=== PATIENT | male | born 1940 | race Hispanic/Latino ===

== ENCOUNTER 2021-05-20 15:54 | Inpatient (IN) | payer OTHER ==
[~2021-05-20] VITALS: Ht 182.9 cm; Wt 81.7 kg
[2021-05-20 16:16] LABS: BASOPHILS % (AUTO) 0.6 % (0.0-5.0); EOSINOPHILS % (AUTO) 1.3 % (0.0-8.0); HEMATOCRIT 39.5 % (42-54); MEAN CORPUSCULAR HEMOGLOBIN 30.7 pg (27.0-33.0); MEAN CORPUSCULAR HGB CONC 33.9 g/dL (32.0-36.0); MEAN CORPUSCULAR VOLUME 90.4 fL (79-99); MONOCYTES % (AUTO) 5.6 % (3.0-13.0); NEUTROPHILS % (AUTO) 73.7 % (40.0-77.0); PLATELET COUNT (AUTO) 267 K/uL (130-400); RED BLOOD CELL COUNT(AUTO) 4.37 MIL/uL (4.50-6.20); WHITE BLOOD COUNT (AUTO) 10.5 K/uL (4.8-10.8)
[2021-05-20] MEDS ORDERED: 0.9%NACL 1000ML 1,000 ML IV ONE (16:30)
[2021-05-20 16:33] LABS: CREATININE 2.4 mg/dL (0.5-1.5); POTASSIUM 4.2 mmol/L (3.5-5.1)
[2021-05-20 16:43] LABS: ALBUMIN 3.2 g/dL (3.5-5.0); BILIRUBIN,TOTAL 1.1 mg/dL (0.2-1.0); TOTAL PROTEIN, SERUM 7.7 g/dL (6.0-8.3)
[2021-05-20 16:54] LABS: B-TYPE NATRIURETIC PEPTIDE 71 pg/mL (0-100)
[2021-05-20 17:06] LABS: INR 1.11 (0.85-1.15)
[2021-05-20 17:07] LABS: PARTIAL THROMBOPLASTIN TIME 32.1 SEC (26.3-35.5)
[2021-05-20] MEDS ORDERED: DUTA0.5C37 PO (18:30)
[2021-05-20] MEDS ORDERED: SOLI10TA7 PO (18:30)
[2021-05-20] MEDS ORDERED: MEMA10TA55 PO (18:30)
[2021-05-20] MEDS ORDERED: OLAN1CAP PO (18:30)
[2021-05-20] MEDS ORDERED: NITR100C PO (18:30)
[2021-05-20] MEDS ORDERED: ATEN1TAB4 PO ×2 (18:30→18:36)
[2021-05-20 19:02] LABS: APPEARANCE,URINE Cloudy (CLEAR); BILIRUBIN,URINE Negative (NEGATIVE); COLOR,URINE Yellow (YELLOW); GLUCOSE, URINE (UA) Negative (NEGATIVE); KETONES,URINE Negative (NEGATIVE); LEUKOCYTE ESTERASE ,URINE Large (NEGATIVE); NITRATE,URINE Positive (NEGATIVE); OCCULT BLOOD,URINE Small (NEGATIVE); PROTEIN,URINE Negative (NEGATIVE)
[2021-05-20 19:11] LABS: BACTERIA,URINE Few /HPF (None Seen); WBC,URINE 26-50 /HPF (0-1)
[2021-05-20 19:12] LABS: HYALINE CASTS, URINE 0-1 /LPF (0-1 /LPF); MUCUS,URINE Rare LPF (None Seen); SQUAMOUS EPITHELIAL CELL,UR Rare /HPF (0-2)
[2021-05-20] MEDS: LACTATED RINGERS 1000ML 1,000 ML IV SCH (20:30)
[2021-05-20] MEDS ORDERED: ASPIRIN 81MG CHEW TAB PO ONE (20:30)
[2021-05-20] MEDS ORDERED: ACETAMINOPHEN 325 MG TAB PO PRN (20:30)
[2021-05-20] MEDS ORDERED: 0.9% NACL 500ML IV.SOLN 500 ML IV SCH (20:30)
[2021-05-20] MEDS ORDERED: ASPIRIN 81MG CHEW TAB ONE (22:55)
[2021-05-20] MEDS: CEFTRIAXONE 1G VIAL IV SCH (22:55)
[2021-05-20] MEDS: HEPARIN 5,000 UNIT VIAL SQ SCH (22:55)
[2021-05-20] MEDS: NITROGLYCERIN 1GM OINT 1 INCH/1GM TD SCH (22:55)
[2021-05-21] MEDS: NITROGLYCERIN 1GM OINT 1 INCH/1GM TD SCH (04:30)
[2021-05-21] MEDS: LACTATED RINGERS 1000ML 1,000 ML IV SCH (06:35)
[2021-05-21 06:42] LABS: BASOPHILS % (AUTO) 0.5 % (0.0-5.0); EOSINOPHILS % (AUTO) 1.4 % (0.0-8.0); HEMATOCRIT 37.9 % (42-54); LYMPHOCYTES % (AUTO) 15.4 % (21.0-51.0); MEAN CORPUSCULAR HEMOGLOBIN 30.5 pg (27.0-33.0); MEAN CORPUSCULAR VOLUME 89.6 fL (79-99); MONOCYTES % (AUTO) 5.5 % (3.0-13.0); NEUTROPHILS % (AUTO) 75.5 % (40.0-77.0); PLATELET COUNT (AUTO) 271 K/uL (130-400); RED BLOOD CELL COUNT(AUTO) 4.23 MIL/uL (4.50-6.20); WHITE BLOOD COUNT (AUTO) 9.5 K/uL (4.8-10.8)
[2021-05-21 06:56] LABS: CREATININE 2.2 mg/dL (0.5-1.5); MAGNESIUM 2.3 mg/dL (1.80-2.40); PHOSPHORUS 5.3 mg/dL (2.5-4.9)
[2021-05-21] MEDS ORDERED: PHARMACY COMMUNICATION MISC SCH (08:30)
[2021-05-21] MEDS ORDERED: NON-FORMULARY MEDICATION 1 EACH (Dutasteride 0.5 MG) PO SCH (09:00)
[2021-05-21] MEDS: FAMOTIDINE 20MG VIAL IV SCH (09:51)
[2021-05-21] MEDS: ASPIRIN 81 MG EC TAB PO SCH (09:52)
[2021-05-21] MEDS: TAMSULOSIN HCL 0.4 MG CAP.ER.24H PO SCH (09:52)
[2021-05-21] MEDS: MEMANTINE HCL 5 MG TABLET PO SCH (09:52)
[2021-05-21] MEDS: HEPARIN 5,000 UNIT VIAL SQ SCH ×3 (09:52→20:46)
[2021-05-21] MEDS ORDERED: OSELTAMIVIR PHOSPHATE 75 MG CAP PO SCH (10:00)
[2021-05-21] MEDS ORDERED: COMPOUND PO MISCELLANEOUS 1 EACH MISC MISC PRN (10:00)
[2021-05-21] MEDS: SOLIFENACIN SUCCINATE 10 MG PO SCH (10:14)
[2021-05-21] MEDS: OSELTAMIVIR PHOSPHATE 300 MG, WATER FOR INJECTION,STERILE 10 ML, COMPOUNDING VEHICLE SF... PO SCH ×6 (10:31→20:46)
[2021-05-21] MEDS: CEFTRIAXONE 1G VIAL IV SCH (20:46)
[2021-05-21] MEDS: FINASTERIDE 5 MG TABLET PO SCH (20:46)
[2021-05-22 03:30] VITALS: BP 114/60
[2021-05-22 05:30] LABS: CREATININE 2.2 mg/dL (0.5-1.5); POTASSIUM 4.1 mmol/L (3.5-5.1)
[2021-05-22 07:00] VITALS: BP 102/45
[2021-05-22 08:19] LABS: HEMATOCRIT 36.9 % (42-54); MEAN CORPUSCULAR HEMOGLOBIN 31.1 pg (27.0-33.0); MEAN CORPUSCULAR HGB CONC 33.6 g/dL (32.0-36.0); MEAN CORPUSCULAR VOLUME 92.5 fL (79-99); RED BLOOD CELL COUNT(AUTO) 3.99 MIL/uL (4.50-6.20); RED CELL DISTRIBUTION WIDTH 12.2 % (11.0-15.5); WHITE BLOOD COUNT (AUTO) 8.8 K/uL (4.8-10.8)
[2021-05-22] MEDS: SOLIFENACIN SUCCINATE 10 MG PO SCH (09:00)
[2021-05-22] MEDS: OSELTAMIVIR PHOSPHATE 300 MG, WATER FOR INJECTION,STERILE 10 ML, COMPOUNDING VEHICLE SF... PO SCH ×6 (09:00→20:30)
[2021-05-22] MEDS: TAMSULOSIN HCL 0.4 MG CAP.ER.24H PO SCH (09:35)
[2021-05-22] MEDS: MEMANTINE HCL 5 MG TABLET PO SCH (09:35)
[2021-05-22] MEDS: FAMOTIDINE 20MG VIAL IV SCH (09:35)
[2021-05-22] MEDS: ASPIRIN 81 MG EC TAB PO SCH (09:35)
[2021-05-22] MEDS: HEPARIN 5,000 UNIT VIAL SQ SCH ×2 (09:39→20:30)
[2021-05-22 11:00] VITALS: BP 127/77
[2021-05-22 15:00] VITALS: BP 113/59
[2021-05-22 20:00] VITALS: BP 133/60
[2021-05-22] MEDS: CEFTRIAXONE 1G VIAL IV SCH (20:29)
[2021-05-22] MEDS: FINASTERIDE 5 MG TABLET PO SCH (20:29)
[2021-05-23] VITALS: BP 104/57
[2021-05-23 04:00] VITALS: BP 123/64
[2021-05-23 04:31] LABS: CREATININE 2.1 mg/dL (0.5-1.5)
[2021-05-23 08:00] VITALS: BP 122/52
[2021-05-23] MEDS: SOLIFENACIN SUCCINATE 10 MG PO SCH (09:00)
[2021-05-23] MEDS: TAMSULOSIN HCL 0.4 MG CAP.ER.24H PO SCH (09:45)
[2021-05-23] MEDS: FAMOTIDINE 20MG VIAL IV SCH (09:46)
[2021-05-23] MEDS: MEMANTINE HCL 5 MG TABLET PO SCH (09:46)
[2021-05-23] MEDS: ASPIRIN 81 MG EC TAB PO SCH (09:46)
[2021-05-23] MEDS: OSELTAMIVIR PHOSPHATE 300 MG, WATER FOR INJECTION,STERILE 10 ML, COMPOUNDING VEHICLE SF... PO SCH ×6 (09:47→20:22)
[2021-05-23] MEDS: HEPARIN 5,000 UNIT VIAL SQ SCH ×3 (10:01→20:16)
[2021-05-23 12:00] VITALS: BP 119/69
[2021-05-23 16:00] VITALS: BP 94/51
[2021-05-23] MEDS: CEFTRIAXONE 1G VIAL IV SCH (20:16)
[2021-05-23] MEDS: FINASTERIDE 5 MG TABLET PO SCH (20:16)
[2021-05-23 20:20] VITALS: BP 109/59
[2021-05-24 00:20] VITALS: BP 115/69
[2021-05-24 04:20] VITALS: BP 124/66
[2021-05-24 08:00] VITALS: BP 107/70
[2021-05-24] MEDS: ASPIRIN 81 MG EC TAB PO SCH (08:41)
[2021-05-24] MEDS: MEMANTINE HCL 5 MG TABLET PO SCH (08:42)
[2021-05-24] MEDS: TAMSULOSIN HCL 0.4 MG CAP.ER.24H PO SCH (08:42)
[2021-05-24] MEDS: FAMOTIDINE 20MG VIAL IV SCH (08:42)
[2021-05-24] MEDS: HEPARIN 5,000 UNIT VIAL SQ SCH ×3 (08:44→21:36)
[2021-05-24 12:00] VITALS: BP_SYST 117; BP_SYST 131; BP_DIAS 66; BP_DIAS 71
[2021-05-24] MEDS: OSELTAMIVIR PHOSPHATE 300 MG, WATER FOR INJECTION,STERILE 10 ML, COMPOUNDING VEHICLE SF... PO SCH ×6 (13:00→21:37)
[2021-05-24 16:00] VITALS: BP 123/76
[2021-05-24 20:12] VITALS: BP 111/62
[2021-05-24] MEDS: FINASTERIDE 5 MG TABLET PO SCH (21:32)
[2021-05-24] MEDS: CEFTRIAXONE 1G VIAL IV SCH (21:32)
[2021-05-24] MEDS: LACTULOSE 20 GM/30 ML UDCUP PO SCH (21:32)
[2021-05-25] VITALS: BP 119/67
[2021-05-25 04:00] VITALS: BP 128/72
[2021-05-25 08:00] VITALS: BP 136/59
[2021-05-25] MEDS: TAMSULOSIN HCL 0.4 MG CAP.ER.24H PO SCH ×2 (09:00→09:31)
[2021-05-25] MEDS: OSELTAMIVIR PHOSPHATE 300 MG, WATER FOR INJECTION,STERILE 10 ML, COMPOUNDING VEHICLE SF... PO SCH ×3 (09:00)
[2021-05-25] MEDS: LACTULOSE 20 GM/30 ML UDCUP PO SCH ×2 (09:00→09:30)
[2021-05-25] MEDS: ASPIRIN 81 MG EC TAB PO SCH ×2 (09:00→09:30)
[2021-05-25] MEDS: FAMOTIDINE 20MG VIAL IV SCH ×2 (09:00→09:30)
[2021-05-25] MEDS: MEMANTINE HCL 5 MG TABLET PO SCH (09:31)
[2021-05-25] MEDS: HEPARIN 5,000 UNIT VIAL SQ SCH (09:33)
[2021-05-25 11:35] VITALS: BP 140/73
[2021-05-25] MEDS ORDERED: AEC81 PO (15:06)
[2021-05-25] MEDS ORDERED: TAMS-1 PO (15:06)
[2021-05-25] MEDS ORDERED: CEFD300C3 PO (15:06)
[2021-05-25] MEDS ORDERED: FINA5TAB2 PO (15:06)
[2021-05-25] MEDS ORDERED: METO25TA6 PO (15:40)
[2021-05-25] MEDS ORDERED: METOPROLOL TARTRATE 25 MG TAB PO SCH (16:00)
== END 2021-05-25 17:46 | disposition home or self-care (01) | DRG 682 ==
LOC: EDH 15:54 → EDHIP 20:17 → 4DH 05-22 03:00
PROVIDERS: ADMIT Internal Medicine; ATTEND Internal Medicine
DX: N17.9 Acute kidney failure, unspecified (principal); G92.8 Other toxic encephalopathy; N39.0 Urinary tract infection, site not specified; N13.8 Other obstructive and reflux uropathy; N40.1 Benign prostatic hyperplasia with lower urinary tract symptoms; Z20.822 Contact with and (suspected) exposure to COVID-19; M10.9 Gout, unspecified; F03.90 Unspecified dementia, unspecified severity, without behavioral disturbance, psychotic disturbance, mood disturbance, and anxiety; R77.8 Other specified abnormalities of plasma proteins; N41.9 Inflammatory disease of prostate, unspecified; E87.8 Other disorders of electrolyte and fluid balance, not elsewhere classified; R33.8 Other retention of urine; J10.1 Influenza due to other identified influenza virus with other respiratory manifestations; N18.9 Chronic kidney disease, unspecified; I12.9 Hypertensive chronic kidney disease with stage 1 through stage 4 chronic kidney disease, or unspecified chronic kidney disease; E11.22 Type 2 diabetes mellitus with diabetic chronic kidney disease; B96.20 Unspecified Escherichia coli [E. coli] as the cause of diseases classified elsewhere; G31.9 Degenerative disease of nervous system, unspecified
CPT/HCPCS: 36415; 70450; 71045; 73620; 74176; 76770; 80048; 80053; 81001; 82140; 82150; 82550; 83605; 83690; 83735; 83874; 83880; 84100; 84145; 84484; 85025; 85027; 85610; 85730; 87040; 87077; 87088; 87186; 87635; 87804; 92610; 93005; 97039; C9803; G0378; J0696; J1644; J3490